=== PATIENT | male | born 1995 | race Two or more races ===

== ENCOUNTER 2019-01-24 06:28 | Emergency (ER) | payer BC, OTHER ==
[~2019-01-24] VITALS: Ht 185.4 cm; Wt 81.2 kg
--- NOTE | 2019-01-24 06:54 | NUR ---
PA AT BS.
[2019-01-24] MEDS ORDERED: KETOROLAC 30 MG/1 ML IM ONE (07:00)
[2019-01-24] MEDS ORDERED: KETOROLAC 60 MG/2 ML ONE (07:01)
[2019-01-24 07:06] VITALS: BP 121/82
--- NOTE | 2019-01-24 08:14 | NUR ---
FRIENDS AT BS
--- NOTE | 2019-01-24 08:15 | NUR ---
SHOULDER IMMOBILIZER APPLIED. EDUCATION GIVEN.
== END 2019-01-24 08:43 | disposition home or self-care (01) ==
LOC: ED 08:00
DX: S43.402A Unspecified sprain of left shoulder joint, initial encounter (principal); Z90.49 Acquired absence of other specified parts of digestive tract; X58.XXXA Exposure to other specified factors, initial encounter; Y93.89 Activity, other specified; Y92.69 Other specified industrial and construction area as the place of occurrence of the external cause; Y99.0 Civilian activity done for income or pay
CPT/HCPCS: 29105; 73030; 96372; 99283; J1885

== ENCOUNTER 2019-01-29 16:56 | Emergency (ER) | payer OTHER ==
[~2019-01-29] VITALS: Ht 170.2 cm; Wt 78.6 kg
[2019-01-29 17:07] VITALS: BP 106/72
== END 2019-01-29 17:57 | disposition home or self-care (01) ==
LOC: ED 17:51
DX: M25.512 Pain in left shoulder (principal)
CPT/HCPCS: 99283

== ENCOUNTER 2019-07-04 03:13 | Emergency (ER) | payer OTHER ==
[~2019-07-04] VITALS: Ht 185.4 cm; Wt 85.0 kg
[2019-07-04 03:18] VITALS: BP 119/76
--- NOTE | 2019-07-04 03:35 | NUR ---
PT RESTING COMFORTABLY IN [facility] AT THIS TIME WITH CALL LIGHT WITHIN REACH. PT EDUCATED ABOUT ER PROCESS AND POC AND VERBALIZES UNDERSTANDING.
[2019-07-04] MEDS ORDERED: DIPH,PERTUSS(ACELL),TET VAC/PF 0.5 ML IM-VACC ONE ×2 (03:38→04:00)
--- NOTE | 2019-07-04 03:43 | NUR ---
PT MEDICATED PER MAR.
--- NOTE | 2019-07-04 03:45 | NUR ---
PT MEDICATED PER MAR.
--- NOTE | 2019-07-04 04:03 | NUR ---
PT D/C WITH D/C SUMMARY AND SCRIPTS. PT VERBALIZES UNDERSTANDING OF HOME CARE AND F/U INSTRUCTIONS. PT DENIES ANY OTHER NEEDS PERTAINING TO THIS VISIT AND AMBULATES TO REGISTRATION DESK WITH STEADY GAIT FOR D/C HOME. PT WORKMAN'S COMP PAPERWORK LEFT WITH REGISTRATION
== END 2019-07-04 04:07 | disposition home or self-care (01) ==
LOC: ED 04:02
DX: S40.272A Other superficial bite of left shoulder, initial encounter (principal); W50.3XXA Accidental bite by another person, initial encounter; Y93.89 Activity, other specified; Y92.89 Other specified places as the place of occurrence of the external cause; Y99.8 Other external cause status
CPT/HCPCS: 90471; 90715